=== PATIENT | female | born 1990 | race African-American/Black ===

== ENCOUNTER → 2016-03-05 | Outpatient (CLI) | payer OTHER ==
[~2016-03-05] MED LIST: IOPAMIDOL (ISOVUE-300) 100 ML BTL IV ONE; LIDOCAINE 1% 30 ML SDV ONE
--- NOTE | 2016-03-05 18:43 | CT ---
CT Scan of the Chest (With Contrast) at 1532 hours Clinical Indications: Left-sided chest pain for 3 years. Comparison: None. Technique: During the uneventful intravenous machine power injection of 90 mL Isovue-300, multidetect or helical CT imaging was performed from the superior thoracic inlet to the diaphragm. The radiologis t manipulated images at the computer workstation. Dose reduction techniques were utilized. Findings: Bilateral ribs demonstrate no evidence of fractures or destructive osseous lesions. No ches t wall masses. No aortic aneurysm or dissection. Heart is normal in size. No pericardial effusion or cardiomegaly. N o pleural effusion or pneumothorax. No suspicious pulmonary masses. No significant mediastinal, hilar or axillary adenopathy. No chest wall masses. No scapular masses or destructive osseous lesions. No thoracic compression fractures. Impression: 1. No acute pulmonary disease. 2. No rib fractures or destructive osseous lesions. 3. No pneumonia, pleural effusion, aortic aneurysm, pulmonary masses, or significant adenopathy. 4. No cardiomegaly or pericardial effusion.
== END ==
LOC: FIMAGING 14:32
PROVIDERS: ATTEND Physician Assistant Medical
DX: R07.89 Other chest pain (principal)
CPT/HCPCS: Q9967